=== PATIENT | female | born 1975 | race American Indian/Alaskan Native ===

== ENCOUNTER 2017-01-26 19:52 | Emergency (ER) | payer SELFPAY ==
[2017-01-26 19:56] VITALS: BP 103/66
[2017-01-26] MEDS ORDERED: Al Hydrox/Mg Hydrox/Simet LIQ* 30 ML UDC PO ONE (20:33)
[2017-01-26] MEDS ORDERED: Lidocaine 2% VISCOUS* 15 ML UDC PO ONE (20:33)
--- NOTE | 2017-01-26 20:41 | UC ---
Cardiac HPI - HPI Summary HPI Summary: PT WITH SEVERAL WEEKS OF INTERMITTENT SHARP MID STERNAL CP AND FEELING OF SOB, LIKE SHE IS CHOKING. FEELS SHE CAN NOT SWALLOW. FOOD IS GETTING STUCK. CAN NOT SWALLOW SOLIDS WITHOUT SPITTING THEM BACK UP. LIQUIDS ARE GOING DOWN OKAY. IS HANDLING SECRETIONS WELL DURING ENCOUNTER BUT REPORTS THAT SOMETIMES SHE FEELS HER SALIVA IS POOLING. PT IS VERY ANXIOUS AND TEARFUL. HAS H/O ANXIETY. WAS ON SERTRALINE AND QUETIAPINE PER HER PHYSICIAN IN [place] SINCE THE FALL 2015 BUT WAS DOING WELL SO TAPERED OFF SEVERAL MONTHS AGO. SX ARE WORSE AT NIGHT. TOOK NEXIUM YESTERDAY AND WAS ABLE TO SLEEP THROUGH THE NIGHT. HAS BEEN TO THE ER TWICE EARLIER THIS YEAR FOR SIMILAR SX. CARDIAC WORK-UP NEGATIVE. - History of Current Complaint Chief Complaint: UCChestPain Stated Complaint: RESP COMPLAINT Time Seen by Provider: 01/26/17 20:01 Hx Obtained From: Patient Onset/Duration: Gradual Onset, Lasting Weeks, Still Present Timing: Intermittent Episodes Lasting: Initial Severity: Moderate Current Severity: Moderate Pain Intensity: 7 Chest Pain Location: Mid Sternal Character: Sharp/Stabbing Aggravating: Nothing Alleviating: Nothing Associated Signs & Symptoms: Positive: Chest Pain, Anxiety, Headaches, SOB - FEELS LIKE SHE IS CHOKING, Nausea/Vomiting. Negative: Syncope, Fever, Diaphoresis, Palpitations, Cough - Allergy/Home Medications Allergies/Adverse Reactions: Allergies Allergy/AdvReac Type Severity Reaction Status Date / Time No Known Allergies Allergy Verified 01/26/17 19:56 PMH/Surg Hx/FS Hx/Imm Hx Psychological History: Anxiety - Surgical History Surgical History: None - Family History Known Family History: Positive: Other - sister had anxiety and depression in her 40s Negative: Cardiac Disease, Hypertension, Diabetes - Social History Alcohol Use: None Substance Use Type: None Smoking Status (MU): Never Smoked Tobacco - Immunization History Most Recent Influenza Vaccination: not yet this year Most Recent Tetanus Shot: unsure Most Recent Pneumonia Vaccination: none Review of Systems Constitutional: Negative ENT: Other - GLOBUS SENSATION Respiratory: Other - FEELS LIKE SHE IS CHOKING Cardiovascular: Chest Pain Gastrointestinal: Negative Psychological: Anxious All Other Systems Reviewed And Are Negative: Yes Physical Exam Triage Information Reviewed: Yes Appearance: No Pain Distress, Well-Nourished, Other: - TEARFUL Vital Signs: Initial Vital Signs Temp 98.5 F 01/26/17 19:53 Pulse 79 01/26/17 19:53 Resp 20 01/26/17 19:53 BP 103/66 01/26/17 19:53 Pulse Ox 99 01/26/17 19:53 Vital Signs Reviewed: Yes Eyes: Positive: Conjunctiva Clear ENT: Positive: Hearing grossly normal, Pharynx normal, TMs normal, Other: - IS HANDLING SECRETIONS WELL. Negative: Tonsillar swelling, Muffled/hoarse voice Neck: Positive: Supple, Nontender, No Lymphadenopathy Respiratory Exam: Normal Cardiovascular Exam: Normal Abdomen Description: Positive: Soft Musculoskeletal: Positive: No Edema Neurological: Positive: Alert Psychological: Positive: Age Appropriate Behavior Skin: Negative: rashes Diagnostics - EKG Cardiac Rate: NL - 67bpm Cardiac Rhythm: Sinus: Normal Ectopy: None ST Segment: Normal Re-Evaluation - Re-Evaluation First Eval Re-Evaluation Time: 21:30 - NO CLEAR IMPROVEMENT WITH GI COCKTAIL Change: Unchanged - Assessment/Plan Course Of Treatment: DISCUSSED TRANSFER TO ER FOR CARDIAC WORK-UP. PT DECLINES. SX SEEM MORE LIKELY TO BE RELATED TO UNTREATED DEPRESSION AND ANXIETY. PT DENIES SUICIDAL IDEATIONS. PT TO SEEK OUTPATIENT TREATMENT. WILL GO TO ER IF SX WORSEN. - Clinical Impression Provider Diagnoses: ANXIETY Discharge - Discharge Plan Condition: Stable Disposition: HOME Prescriptions: Esomeprazole(NF) [NexIUM(NF)] 40 mg PO DAILY #30 cap Patient Education Materials: Gastritis (ED), Mood Disorders (ED), Anxiety (ED) Referrals: Louie Cohn MD [Medical Doctor] - Additional Instructions: YOUR SYMPTOMS ARE LIKELY DUE TO ANXIETY AND POSSIBLY SOME CONCOMITANT GASTRITIS. TAKE THE NEXIUM DAILY AND AVOID POSSIBLE TRIGGER FOODS - GREASY, SPICY, ACIDIC ITEMS. CALL GI FOR AN APPT FOR FURTHER EVALUATION. YOU WOULD LIKELY ALSO BENEFIT FROM TREATMENT FOR DEPRESSION AND ANXIETY. KEEP YOUR COUNSELING APPT IN 2 DAYS AND CALL [facility] TO GET ESTABLISHED WITH PSYCHIATRY. CALL THE NUMBER BELOW FOR ASSISTANCE IN ESTABLISHING WITH A PCP An additional resource available to assist in finding the appropriate physician for your health care needs is the [facility] ([facility]). You may contact them by calling [phone]. [facility] Address: [address] [place] [address] GO TO THE ER WITHOUT FAIL IF YOUR SYMPTOMS WORSEN.
== END 2017-01-26 21:51 | disposition home or self-care (01) ==
LOC: UCEAST 19:52
DX: F41.9 Anxiety disorder, unspecified (principal)
CPT/HCPCS: 93005; 99212; A9270-GY; G0463

== ENCOUNTER 2017-01-26 22:27 | Emergency (ER) | payer SELFPAY ==
[2017-01-26 23:54] VITALS: BP 99/62
== END 2017-01-27 00:49 | disposition left against medical advice (07) ==
LOC: ED 22:27
DX: R06.02 Shortness of breath (principal); Z53.21 Procedure and treatment not carried out due to patient leaving prior to being seen by health care provider

== ENCOUNTER 2017-01-27 03:20 | Emergency (ER) | payer OTHER ==
[2017-01-27] MEDS ORDERED: NS 0.9% 1000 ML* 1,000 ML IV SCH (03:45)
[2017-01-27] MEDS ORDERED: Al Hydrox/Mg Hydrox/Simet LIQ* 30 ML UDC PO ONE (04:13)
[2017-01-27] MEDS ORDERED: Pantoprazole IV* 40 MG IV ONE (04:13)
[2017-01-27] MEDS ORDERED: Lidocaine 2% VISCOUS* 15 ML UDC PO ONE (04:13)
[2017-01-27 04:47] LABS: Hematocrit 40 % (35-47); Hemoglobin 12.6 g/dl (12.0-16.0); Mean Corpuscular HGB Conc 32 g/dl (31-36); Mean Corpuscular Hemoglobin 25 pg (27-31); Mean Corpuscular Volume 80 fL (80-97); Mean Platelet Volume 9 um3 (7.4-10.4); Red Blood Count 5.01 10^6/ul (4.0-5.4); Red Cell Distribution Width 15 % (10.5-15); White Blood Count 6.6 10^3/ul (3.5-10.8)
[2017-01-27 04:57] LABS: ALT 9 U/L (7-52); AST 14 U/L (13-39); Albumin 4.5 g/dL (3.2-5.2); Alkaline Phosphatase 53 U/L (34-104); Anion Gap 5 mmol/L (2-11); BUN/Creatinine Ratio 14.1 (8-20); Blood Urea Nitrogen 9 mg/dL (6-24); CO2 Carbon Dioxide 27 mmol/L (22-32); Calcium 9.3 mg/dL (8.6-10.3); Chloride 104 mmol/L (101-111); Creatine Kinase 64 U/L (10-223); EGFR African American 131.5 (>60); EGFR Non-African American 102.3 (>60); Globulin 2.9 g/dL (2-4); Glucose 93 mg/dL (70-100); Lipase 25 U/L (11.0-82.0); Magnesium 2.1 mg/dL (1.9-2.7); Potassium 3.7 mmol/L (3.5-5.0); Sodium 136 mmol/L (133-145); Total Protein 7.4 g/dL (6.4-8.9)
[2017-01-27 05:14] LABS: TSH (Thyroid Stimulating Horm) 3.26 mcIU/mL (0.34-5.60)
--- NOTE | 2017-01-27 05:56 | ED ---
charles Oreilly Timothy, scribed for Jasbir Richards MD on 01/27/17 at 0338 . HPI Chest Pain - HPI Summary HPI Summary: Lynda Romo is a 41 yo female presenting to [facility] with 7/10 chest and abd pain since 01/13/17. She presents today concerned that the pain has not resolved. She states she feels like there is something stuck in her throat and feels blocked up. She states that she can swallow her saliva with no difficulties. She notes she feels that she has to open her mouth in order to breathe easily. She was seen in urgent care last night at 1999, where she was given a GI cocktail. She states laying down makes her pain worse. She notes no issues with BM or urination. She started nexium yesterday. Her MHx includes anxiety per urgent care note. Her LNMP was 2 weeks ago. - History of Current Complaint Chief Complaint: EDChestPainROMI Time Seen by Provider: 01/27/17 04:10 Hx Obtained From: Patient Onset/Duration: Started Weeks Ago, Still Present Timing: Constant Initial Severity: Moderate Current Severity: Moderate Pain Intensity: 7 Pain Scale Used: 0-10 Numeric Chest Pain Radiates: Yes Chest Pain Radiates To:: Epigastric Aggravating Factor(s): Position - laying down Associated Signs and Symptoms: Positive: Abdominal Pain - Allergy/Home Medications Allergies/Adverse Reactions: Allergies Allergy/AdvReac Type Severity Reaction Status Date / Time No Known Allergies Allergy Verified 01/26/17 19:56 PMH/Surg Hx/FS Hx/Imm Hx Endocrine/Hematology History: Denies: Hx Blood Disorders, Hx Diabetes Cardiovascular History: Denies: Hx Hypertension Respiratory History: Denies: Hx Asthma, Hx Chronic Obstructive Pulmonary Disease (COPD) Psychiatric History: Reports: Hx Anxiety Infectious Disease History: Denies: Hx Clostridium Difficile, Hx Hepatitis, Hx of Known/Suspected MRSA, Hx Shingles, Hx Tuberculosis, Hx Known/Suspected VRE, Hx Known/Suspected VRSA, History Other Infectious Disease, Traveled Outside the [place] in Last 30 Days - Family History Known Family History: Positive: Other - sister had anxiety and depression in her 40s Negative: Cardiac Disease, Hypertension, Diabetes - Social History Alcohol Use: None Substance Use Type: Reports: None Hx Tobacco Use: No Smoking Status (MU): Never Smoked Tobacco Review of Systems Constitutional: Negative Eyes: Negative Positive: Sore Throat - foreign body sensation Positive: Chest Pain - foreign body sensation Respiratory: Negative Positive: Abdominal Pain Genitourinary: Negative Positive: no symptoms reported Musculoskeletal: Negative Skin: Negative Neurological: Negative Psychological: Normal All Other Systems Reviewed And Are Negative: Yes Physical Exam Triage Information Reviewed: Yes Vital Signs On Initial Exam: Initial Vitals Temp Pulse Resp BP Pulse Ox 97.4 F 66 18 105/67 99 01/27/17 03:24 01/27/17 03:24 01/27/17 03:24 01/27/17 03:24 01/27/17 03:24 Vital Signs Reviewed: Yes Appearance: Positive: Well-Appearing, Well-Nourished, Pain Distress - mild, worse when she swallows Skin: Positive: Warm, Skin Color Reflects Adequate Perfusion, Dry Head/Face: Positive: Normal Head/Face Inspection Eyes: Positive: EOMI, MARY ANN ENT: Positive: Normal ENT inspection Neck: Positive: Supple, Nontender Respiratory/Lung Sounds: Positive: Clear to Auscultation, Breath Sounds Present Cardiovascular: Positive: RRR Abdomen Description: Positive: Soft. Negative: Nontender - tender with palpation to sternum and epigastrum. All other abd is nontender. Bowel Sounds: Positive: Present Musculoskeletal: Positive: Normal, Strength/ROM Intact Neurological: Positive: Normal, Sensory/Motor Intact, Alert, Oriented to Person Place, Time Psychiatric: Positive: Affect/Mood Appropriate Diagnostics - Vital Signs Vital Signs Temp Pulse Resp BP Pulse Ox 01/27/17 03:24 97.4 F 66 18 105/67 99 - Laboratory Lab Results: Lab Results 01/27/17 01/27/17 01/27/17 Range/Units 04:25 04:25 04:25 WBC 6.6 (3.5-10.8) 10^3/ul RBC 5.01 (4.0-5.4) 10^6/ul Hgb 12.6 (12.0-16.0) g/dl Hct 40 (35-47) % MCV 80 (80-97) fL MCH 25 L (27-31) pg MCHC 32 (31-36) g/dl RDW 15 (10.5-15) % Plt Count 230 (150-450) 10^3/ul MPV 9 (7.4-10.4) um3 Neut % (Auto) 59.0 (38-83) % Lymph % (Auto) 31.0 (25-47) % Izard % (Auto) 7.5 (1-9) % Eos % (Auto) 2.0 (0-6) % Baso % (Auto) 0.5 (0-2) % Absolute Neuts (auto) 3.9 (1.5-7.7) 10^3/ul Absolute Lymphs (auto) 2.0 (1.0-4.8) 10^3/ul Absolute Monos (auto) 0.5 (0-0.8) 10^3/ul Absolute Eos (auto) 0.1 (0-0.6) 10^3/ul Absolute Basos (auto) 0 (0-0.2) 10^3/ul Absolute Nucleated RBC 0.01 10^3/ul Nucleated RBC % 0.1 INR (Anticoag Therapy) 0.99 (0.89-1.11) APTT 29.7 (26.0-36.3) seconds D-Dimer, Quantitative < 200 (Less Than 230) ng/mL Sodium 136 (133-145) mmol/L Potassium 3.7 (3.5-5.0) mmol/L Chloride 104 (101-111) mmol/L Carbon Dioxide 27 (22-32) mmol/L Anion Gap 5 (2-11) mmol/L BUN 9 (6-24) mg/dL Creatinine 0.64 (0.51-0.95) mg/dL Est GFR ( Amer) 131.5 (>60) Est GFR (Non-Af Amer) 102.3 (>60) BUN/Creatinine Ratio 14.1 (8-20) Glucose 93 (70-100) mg/dL Lactic Acid (0.5-2.0) mmol/L Calcium 9.3 (8.6-10.3) mg/dL Magnesium 2.1 (1.9-2.7) mg/dL Total Bilirubin 0.50 (0.2-1.0) mg/dL AST 14 (13-39) U/L ALT 9 (7-52) U/L Alkaline Phosphatase 53 (34-104) U/L Total Creatine Kinase 64 (10-223) U/L CK-MB (CK-2) 1.0 (0.6-6.3) ng/mL Troponin I 0.00 (<0.04) ng/mL C-Reactive Protein 2.70 (< 5.00) mg/L B-Natriuretic Peptide ( - 100) pg/mL Total Protein 7.4 (6.4-8.9) g/dL Albumin 4.5 (3.2-5.2) g/dL Globulin 2.9 (2-4) g/dL Albumin/Globulin Ratio 1.6 (1-3) Lipase 25 (11.0-82.0) U/L TSH 3.26 (0.34-5.60) mcIU/mL Beta HCG, Quant < 0.60 mIU/mL 01/27/17 01/27/17 Range/Units 04:25 04:25 WBC (3.5-10.8) 10^3/ul RBC (4.0-5.4) 10^6/ul Hgb (12.0-16.0) g/dl Hct (35-47) % MCV (80-97) fL MCH (27-31) pg MCHC (31-36) g/dl RDW (10.5-15) % Plt Count (150-450) 10^3/ul MPV (7.4-10.4) um3 Neut % (Auto) (38-83) % Lymph % (Auto) (25-47) % Izard % (Auto) (1-9) % Eos % (Auto) (0-6) % Baso % (Auto) (0-2) % Absolute Neuts (auto) (1.5-7.7) 10^3/ul Absolute Lymphs (auto) (1.0-4.8) 10^3/ul Absolute Monos (auto) (0-0.8) 10^3/ul Absolute Eos (auto) (0-0.6) 10^3/ul Absolute Basos (auto) (0-0.2) 10^3/ul Absolute Nucleated RBC 10^3/ul Nucleated RBC % INR (Anticoag Therapy) (0.89-1.11) APTT (26.0-36.3) seconds D-Dimer, Quantitative (Less Than 230) ng/mL Sodium (133-145) mmol/L Potassium (3.5-5.0) mmol/L Chloride (101-111) mmol/L Carbon Dioxide (22-32) mmol/L Anion Gap (2-11) mmol/L BUN (6-24) mg/dL Creatinine (0.51-0.95) mg/dL Est GFR ( Amer) (>60) Est GFR (Non-Af Amer) (>60) BUN/Creatinine Ratio (8-20) Glucose (70-100) mg/dL Lactic Acid 0.6 (0.5-2.0) mmol/L Calcium (8.6-10.3) mg/dL Magnesium (1.9-2.7) mg/dL Total Bilirubin (0.2-1.0) mg/dL AST (13-39) U/L ALT (7-52) U/L Alkaline Phosphatase (34-104) U/L Total Creatine Kinase (10-223) U/L CK-MB (CK-2) (0.6-6.3) ng/mL Troponin I (<0.04) ng/mL C-Reactive Protein (< 5.00) mg/L B-Natriuretic Peptide 12 ( - 100) pg/mL Total Protein (6.4-8.9) g/dL Albumin (3.2-5.2) g/dL Globulin (2-4) g/dL Albumin/Globulin Ratio (1-3) Lipase (11.0-82.0) U/L TSH (0.34-5.60) mcIU/mL Beta HCG, Quant mIU/mL Result Diagrams: 01/27/17 04:25 01/27/17 04:25 Lab Statement: Any lab studies that have been ordered have been reviewed, and results considered in the medical decision making process. - Radiology CXR Xray Interpretation: No Acute Changes - No acute disease Radiology Interpretation Completed By: ED Physician - EKG 0335 Cardiac Rate: NL - 62 BPM EKG Interpretation: NSR @ 62 BPM, normal ST, no ectopy Re-Evaluation - Re-Evaluation First Eval Re-Evaluation Time: 05:48 Change: Improved Comment: Reviewed lab and imaging study results with Pt. Pt notes marked improvement in her Sx. Chest Pain Course/Dx - Course Assessment/Plan: Lynda Romo is a 41 yo female presenting to [facility] with 7/10 chest and abd pain since 01/13/17. Pt medication list is reviewed this visit. In the ED course she received IV fluids, maalox plus, xylocaine 2% viscous, and protonix. Her CXR shows no acute disease. Her EKG shows NSR, normal ST, and no ectopy. After clinical examination and review of her lab work , she will be discharged home with appropriate instructions. NO CRITICAL CARE TIME. IMPROVED IN ED AFTER GI COCKTAIL. DISCUSSED RESULTS WITH PATIENT. RX OMEPRAZOLE 20MG PO BID AND CARAFATE QID. [facility] HOME STABLE. - Chest Pain Differential Diagnosis/HQI/PQRI: Other: - FBS, GERD - Diagnoses Provider Diagnoses: GERD (gastroesophageal reflux disease) Discharge - Discharge Plan Condition: Stable Disposition: HOME Prescriptions: Omeprazole CAP* [Prilosec CAP* 20 MG] 20 mg PO BID #30 cap. Sucralfate TAB* [Carafate*] 1 gm PO QID #60 tab Patient Education Materials: Gastroesophageal Reflux Disease (ED) Referrals: [facility] PHYSICIAN REFERRAL [Outside] - 2 Days Additional Instructions: Please follow up with the primary care physician provided regarding your visit to the emergency department today. Return to the emergency department with any new or recurring symptoms. The documentation as recorded by the charles moreland Timothy accurately reflects the service I personally performed and the decisions made by me, Jasbir Richards MD.
[2017-01-27 06:12] VITALS: BP 99/74
--- NOTE | 2017-01-27 08:00 | RAD ---
Indication: Shortness of breath, abdominal pain, dysphagia. Comparison: July 16, 2016 Technique: Upright AP 0355 hours Report: Clear lungs and pleural spaces. Negative for pneumothorax. The heart, pulmonary vasculature, and mediastinal contours are unremarkable. Negative for free air beneath the diaphragm. IMPRESSION: No evidence for acute intrathoracic disease.
== END 2017-01-27 06:10 | disposition home or self-care (01) ==
LOC: ED 03:20
DX: K21.9 Gastro-esophageal reflux disease without esophagitis (principal); R10.13 Epigastric pain; J02.9 Acute pharyngitis, unspecified; R07.9 Chest pain, unspecified
CPT/HCPCS: 36415; 71010; 80053; 82550; 82553; 83605; 83690; 83735; 83880; 84443; 84484; 84702; 85025; 85379; 85610; 85730; 86140; 93005; 96365; 99284; A9270-GY

== ENCOUNTER 2018-02-21 20:54 | Emergency (ER) | payer OTHER ==
[2018-02-21 21:03] VITALS: BP 102/63
[2018-02-21] MEDS ORDERED: LORazepam TAB(*) 1 MG PO ONE (21:26)
--- NOTE | 2018-02-21 21:26 | UC ---
Psychiatric Complaint HPI - HPI Summary HPI Summary: This is merly Weiner documenting for attending Didier Blount MD. This patient is a 42 year old F presenting to [facility] with a chief complaint of anxiety that began 5 days ago. The patient rates the pain 0/10 in severity. Symptoms aggravated by nothing. Symptoms alleviated by nothing. Patient reports not sleeping well, decreased appetite, and sensation of ants on my arms. She reports she has a history of panic attacks, with similar symptoms, that she has been treating in her home country of [place]. Patient reports she was seen in [place] one week ago and was worked up for a stroke, with all results being negative (negative for acute coronary syndrome as well). She reports that she then went to [facility] but was unable to get an appointment within the next month. - History Of Current Complaint Chief Complaint: UCGeneralIllness Stated Complaint: BODY SHAKES Time Seen by Provider: 02/21/18 21:14 Hx Obtained From: Patient Hx Last Menstrual Period: 3 wks ago ?: No Onset/Duration: Sudden Onset, Lasting Days, Still Present Timing: Constant Severity Initially: Mild Severity Currently: Mild Character: Anxious Aggravating Factor(s): Nothing Alleviating Factor(s): Nothing Related History: Positive For: Prior Psychiatric Issues - Allergies/Home Medications Allergies/Adverse Reactions: Allergies Allergy/AdvReac Type Severity Reaction Status Date / Time No Known Allergies Allergy Verified 02/21/18 21:03 PMH/Surg Hx/FS Hx/Imm Hx Previously Healthy: No Endocrine History: Other Other Endocrine History: Negative diabetes Psychological History: Anxiety, Other Other Psychological History: Negative depression - Surgical History Surgical History: None - Family History Known Family History: Positive: Other - sister had anxiety and depression in her 40s Negative: Cardiac Disease, Hypertension, Diabetes - Social History Occupation: Unemployed Lives: With Family Alcohol Use: None Substance Use Type: None Smoking Status (MU): Never Smoked Tobacco - Immunization History Most Recent Influenza Vaccination: not yet this year Most Recent Tetanus Shot: unsure Most Recent Pneumonia Vaccination: none Review of Systems Gastrointestinal: Other - Positive decreased appetite Psychological: Anxious, Other - Positive not sleeping well and sensation of "ants on arms" All Other Systems Reviewed And Are Negative: Yes Physical Exam - Summary Physical Exam Summary: VITAL SIGNS: Reviewed. GENERAL: Patient is a well-developed and nourished female who is lying comfortable in the stretcher. Patient is not in any acute respiratory distress. HEAD AND FACE: Normocephalic EYES: PERRLA, EOMI x 2. EARS: Hearing grossly intact. MOUTH: Oropharynx within normal limits. NECK: Supple, trachea is midline, no adenopathy, no JVD, no carotid bruit. CHEST: Symmetric, no tenderness at palpation LUNGS: Clear to auscultation bilaterally. No wheezing or crackles. CVS: Regular rate and rhythm, S1 and S2 present, no murmurs or gallops appreciated. ABDOMEN: Soft, non-tender. Bowel sounds are normal. No abdominal abnormal pulsations. EXTREMITIES: Full ROM in all major joints, no edema, no cyanosis or clubbing. NEURO: Alert and oriented x 3. No acute neurological deficits. Speech is normal and follows commands. SKIN: Dry and warm PSYCH: Nervous, crying, denies SI and HI Triage Information Reviewed: Yes Vital Signs: Initial Vital Signs Temp 99.2 F 02/21/18 20:59 Pulse 84 02/21/18 20:59 Resp 18 02/21/18 20:59 BP 102/63 02/21/18 20:59 Pulse Ox 97 02/21/18 20:59 Vital Signs Reviewed: Yes Psych Complaint Course/Dx - Course Course Of Treatment: This patient is a 43-year-old female who presents to the urgent care with chief complaint of having panic attacks. The patient reports that in the last 2 weeks the panic attacks worsened and actually she has been seen in [facility] and [facility] where she rules out stroke and acute coronary syndrome. She reports that she has history of panic attacks 3 years ago for which she was treated and improved when he feels the same. Patient has been free from panic attacks from 2 years. Patient was given a prescription for Ativan and Atarax. Patient has an appointment with [facility]. - Differential Dx/Diagnosis Provider Diagnoses: Panic Atack Discharge - Sign-Out/Discharge Documenting (check all that apply): Patient Departure - Discharge Plan Condition: Stable Disposition: HOME Prescriptions: hydrOXYzine HCL TAB* [Atarax 25 MG TAB*] 25 mg PO TID PRN #30 tab PRN Reason: Anxiety LORazepam [Ativan] 1 mg PO DAILY #10 tablet MDD 1 Patient Education Materials: Panic Disorder (ED) Referrals: [facility] [place] [place] PHYSICIAN REFERRAL [Outside] No Primary Care Phys,NOPCP [Primary Care Provider] - Additional Instructions: Take Acetaminophen or ibuprofen for pain or fever Increase your fluid intake Return to the or go to the emergency department if symptoms worsen Follow-up with primary care physician in next 2-3 days - Billing Disposition and Condition Condition: STABLE Disposition: Home
== END 2018-02-21 21:55 | disposition home or self-care (01) ==
LOC: UCEAST 20:54
DX: F41.0 Panic disorder [episodic paroxysmal anxiety] (principal)
CPT/HCPCS: 99212; A9270-GY; G0463

== ENCOUNTER 2019-11-03 01:57 | Emergency (ER) | payer SELFPAY ==
[2019-11-03] MEDS ORDERED: LORazepam TAB(*) 1 MG PO ONE (02:09)
--- NOTE | 2019-11-03 02:15 | ED ---
Influenza-Like Illness - HPI Summary HPI Summary: 43 year old female presents to the ED with a chief complaint of chest tightness starting tonight. Patient tested negative for COVID-19 on 10/31/19, but has been extremely anxious over the past several days. Patient went on a walk tonight and began to feel tight in her chest. She reports a subjective fever. History of anxiety. Patient does not drink alcohol, smoke tobacco, or do recreational drugs. - History of Current Complaint Time Seen by Provider: 11/03/19 01:58 Hx Obtained From: Patient Onset/Duration: Sudden Onset, Lasting Hours, Worse Since - earlier this evening Severity: Mild Associated Signs & Symptoms: Fever - subjective - Allergy/Home Medications Allergies/Adverse Reactions: Allergies Allergy/AdvReac Type Severity Reaction Status Date / Time No Known Allergies Allergy Verified 11/03/19 02:27 Home Medications: Home Medications LORazepam TAB(*) [Ativan 0.5 MG TAB (*)] 0.5 mg PO Q8H PRN #10 tab MDD 2 [Rx] PMH/Surg Hx/FS Hx/Imm Hx Endocrine/Hematology History: Denies: Hx Blood Disorders, Hx Diabetes Cardiovascular History: Denies: Hx Hypertension Respiratory History: Denies: Hx Asthma, Hx Chronic Obstructive Pulmonary Disease (COPD) Psychiatric History: Reports: Hx Anxiety - Cancer History Hx Chemotherapy: No Hx Radiation Therapy: No Infectious Disease History: Denies: Hx Clostridium Difficile, Hx Hepatitis, Hx of Known/Suspected MRSA, Hx Shingles, Hx Tuberculosis, Hx Known/Suspected VRE, Hx Known/Suspected VRSA, History Other Infectious Disease - Family History Known Family History: Positive: Other - sister had anxiety and depression in her 40s Negative: Cardiac Disease, Hypertension, Diabetes - Social History Alcohol Use: None Substance Use Type: Reports: None Hx Tobacco Use: No Smoking Status (MU): Never Smoked Tobacco Review of Systems Positive: Fever - subjective Positive: Chest Pain - tightness All Other Systems Reviewed And Are Negative: Yes Physical Exam - Summary Physical Exam Summary: Appearance: Well-nourished, lying in bed comfortably. Somewhat tearful and anxious, otherwise well-appearing. Skin: Warm, dry, no obvious rash Eyes: sclera anicteric, no conjunctival pallor HENT: mucous membranes moist, pharynx appears normal Neck: Supple, nontender Respiratory: Clear to auscultation, no signs of respiratory distress Cardiovascular: Normal S1, S2. No murmurs. Normal distal pulses in tibial and radial bilaterally. Abdomen: Soft, nontender, normal active bowel sounds present Musculoskeletal: Normal, Strength/ROM Intact Neurological: A&Ox3, awake and alert, mentation is normal, speech is fluent and appropriate Psychiatric: affect is normal, does not appear anxious or depressed Triage Information Reviewed: Yes Vital Signs Reviewed: Yes Procedures - Sedation Patient Received Moderate/Deep Sedation with Procedure: No Diagnostics - Laboratory Result Diagrams: 11/03/19 02:25 11/03/19 02:25 Lab Statement: Any lab studies that have been ordered have been reviewed, and results considered in the medical decision making process. - EKG 0205 Cardiac Rate: NL - 92 bpm EKG Rhythm: Sinus Rhythm ST Segment: Normal Ectopy: None Summary of EKG Findings: NSR at 92 BPM, P waves, QRS complex, and T waves are within normal limits, T waves and intervals are normal, no ischemic changes. This is a normal EKG. Dr. Perez reviewed and interpreted this EKG. Flu Symptom Course/Dx - Course Course Of Treatment: 43 year old female presents to the ED with a chief complaint of chest tightness starting tonight. Patient tested negative for COVID -19 on 10/31/19, but has been extremely anxious over the past several days. Patient went on a walk tonight and began to feel tight in her chest. She reports a subjective fever. History of anxiety. Patient does not drink alcohol, smoke tobacco, or do recreational drugs. NSR at 92 BPM, P waves, QRS complex, and T waves are within normal limits, T waves and intervals are normal, no ischemic changes. This is a normal EKG. Diagnosis is anxiety. Patient will be discharged home with reference to [facility] if needed. Patient understands and agrees with this plan. - Diagnoses Provider Diagnoses: Anxiety Discharge ED - Sign-Out/Discharge Documenting (check all that apply): Patient Departure - discharge home - Discharge Plan Condition: Stable Disposition: HOME Prescriptions: LORazepam TAB(*) [Ativan 0.5 MG TAB (*)] 0.5 mg PO Q8H PRN #10 tab MDD 2 PRN Reason: Anxiety Patient Education Materials: Anxiety (ED) Referrals: [facility] [Outside] - If Needed [facility] [Outside] - Billing Disposition and Condition Condition: STABLE Disposition: Home - Attestation Statements Document Initiated by Zaidaibe: Yes Documenting Scribe: Grzegorz Victoria Provider For Whom Destiney is Documenting (Include Credential): Dr. Julio Perez Scribdangelo Attestation: IGrzegorz, scribed for Dr. Julio Perez on 11/06/19 at 2321. Scribe Documentation Reviewed: Yes Provider Attestation: The documentation as recorded by the scribe, Grzegorz Victoria accurately reflects the service I personally performed and the decisions made by me, Dr. Julio Perez Status of Scribe Document: Viewed
[2019-11-03 02:35] LABS: ABS Eosinophils 0.2 10^3/ul (0-0.6); ABS Lymphocytes 1.7 10^3/ul (1.0-4.8); ABS Monocytes 0.5 10^3/ul (0-0.8); ABS Neutrophils 5.6 10^3/ul (1.5-7.7); Eosinophil % 2.4 %; Hematocrit 36 % (35-47); Hemoglobin 12.1 g/dL (12.0-16.0); Lymphocyte % 21.5 %; Mean Corpuscular HGB Conc 34 g/dL (31-36); Mean Corpuscular Hemoglobin 28 pg (27-31); Mean Corpuscular Volume 82 fL (80-97); Platelet Count 253 10^3/uL (150-450); Red Blood Count 4.39 10^6 /uL (3.70-4.87); Red Cell Distribution Width 15 % (10-15)
[2019-11-03 02:50] LABS: Albumin 4.1 g/dL (3.2-5.2); Albumin/Globulin Ratio 1.5 (1-3); BUN/Creatinine Ratio 17.9 (8-20); Calcium 8.6 mg/dL (8.6-10.3); EGFR African American 116.2 (>60); EGFR Non-African American 96.1 (>60); Globulin 2.7 g/dL (2-4); Potassium 3.4 mmol/L (3.5-5.0); Total Bilirubin 0.3 mg/dL (0.2-1.0); Total Protein 6.8 g/dL (6.4-8.9)
[2019-11-03 02:53] LABS: Troponin I 0.01 ng/mL (<0.03)
--- OUTSIDE RECORDS SUMMARY | 2019-11-03 03:37 | XMS REPORT ---
:1975 Author Organization [facility] Address [address] [place] [address] Care Team Providers Name Role Phone Carson Peralta Unavailable Unavailable PROBLEMS Type Condition ICD9-CM [id number] Onset Condition SNOMED Code Code Code Dates Status Problem Depression with F41.8 Active 32558394 anxiety Problem Anxiety F41.1 Active 20779449 Problem Gastroesophageal K21.9 Active 072922346 reflux disease without esophagitis ALLERGIES No Information ENCOUNTERS Encounter Location Date Diagnosis [facility] [address] Nov, [place] [address] [facility] [address] Sod, Oct, [place] [address] syndrome B34.9 [facility] [address] Oct, [place] [address] Oct, [place] [address] Oct, Abdominal pain R10.9 [place] [address] Oct, [place] [address] [facility] [address] May, [place] [address] [facility] [address] May, [place] [address] F41.8 ; Nasal congestion R09.81 ; Gastroesophageal reflux disease without esophagitis K21.9 and Screening for HIV (human immunodeficiency virus) Z11.[address] May, Depression with anxiety [place] F41.8 [address] [facility] [address] Feb, [place] [address] [place] [address] Feb, [place] [address] F41.8 and Epigastric pain R10.13 [place] [address] Feb, [place] [address] F41.8 [place] [address] Feb, [place] [address] [address] Feb, [place] [address] December, [place] [address] Nov, [place] [address] Facilitated Enrollment UNKNOWN Nov, - [place] [address] Nov, Right [place] [address] R10.11 ; Gastroesophageal reflux disease without esophagitis K21.9 and Right anterior shoulder pain M25.511 [place] [address] Jun, [place] [address] [place] [address] May, [place] [address] [place] [address] Jan, [place] [address] disorder F41.1 and Gastroesophageal reflux disease with esophagitis K21.0 [place] [address] Jan, [place] [address] [place] [address] Jan, [place] [address] [place] [address] December, [place] [address] IMMUNIZATIONS No Known Immunizations SOCIAL HISTORY Never Assessed REASON FOR REFERRAL FUNCTIONAL STATUS PLAN OF CARE VITAL SIGNS MEDICATIONS Medication Instructions Dosage Frequency Start End Duration Status Date Date HydrOXYzine HCl Orally every 6 1 tablet as 6h Oct, Active 25 MG hrs needed 2019 Colace 100 MG Orally BID 1 capsule 12h 16 Oct, Nov, 30 day(s) Active 2019 2019 Senna 8.6 MG Orally Once a 1-2 tablets 24h 16 Oct, Nov, 30 day(s) Active day at bedtime 2019 2019 as needed PROCEDURES No Known procedures RESULTS No Results REASON FOR VISIT Possible anxiety, [email or web address] Meeting ID: [id number], Verbal Consent obtained for zoom video/audio visit, name and confirmed Insurance Providers [facility] Health Member Patient Patient Patient Patient Patient Subscriber Subscriber Subscriber Group Insurance Plan Plan Plan Plan ID Relationship Address Phone Name Date of ID Name Date of No Type Insurance Insurance Insurance Coverage to Subscriber Address Phone Name Dates Case [phone] Case self Lynda [id number] Management Javier Jordan Management [address] MEDICAL (GENERAL) HISTORY Type Description Date Medical History history of small kidney stones
--- OUTSIDE RECORDS SUMMARY | 2019-11-03 03:37 | XMS REPORT ---
:1975 Author Organization [facility] Address [address] [place] [address] Care Team Providers Name Role Phone Betty Camacho Unavailable Unavailable PROBLEMS Type Condition ICD9-CM [id number] Onset Condition SNOMED Code Code Code Dates Status Problem Gastroesophageal K21.9 Active 241692229 reflux disease without esophagitis Problem Depression with F41.8 Active 47015734 anxiety ALLERGIES No Known Allergies ENCOUNTERS Encounter Location Date Diagnosis [address] Nov, [place] [address] Oct, [place] [address] Oct, Abdominal pain R10.9 [place] [address] Oct, [place] [address] May, [place] [address] [place] [address] May, [place] [address] F41.8 ; Nasal congestion R09.81 ; Gastroesophageal reflux disease without esophagitis K21.9 and Screening for HIV (human immunodeficiency virus) Z11.[address] May, Depression with anxiety [place] F41.8 [address] [place] [address] Feb, [place] [address] [place] [address] Feb, [place] [address] F41.8 and Epigastric pain R10.13 [place] [address] Feb, [place] [address] F41.8 [facility] [address] Feb, [place] [address] F41.8 [facility] [address] [facility] Feb, [place] [address] [facility] [address] [facility] December, [place] [address] [facility] [address] [facility] Nov, [place] [address] Facilitated Enrollment UNKNOWN Nov, - [place] [facility] [address] Nov, [place] [address] R10.11 ; Gastroesophageal reflux disease without esophagitis K21.9 and Right anterior shoulder pain M25.511 [facility] [address] Jun, [place] [address] [facility] [address] May, [place] [address] [facility] [address] Jan, [place] [address] disorder F41.1 and Gastroesophageal reflux disease with esophagitis K21.0 [facility] [address] Jan, [place] [address] [facility] [address] Jan, [place] [address] [facility] [address] December, [place] [address] IMMUNIZATIONS No Known Immunizations SOCIAL HISTORY Never Assessed REASON FOR REFERRAL FUNCTIONAL STATUS PLAN OF CARE Activity Details Follow Up per last OVE due 08/2018, will offer to pt Reason: VITAL SIGNS Temperature 96.7 degrees Fahrenheit 2019-10-23 Heart Rate 18 2019-10-23 Weight 149.7 2019-10-23 Height 62.8 in 2019-10-23 BMI 26.68 kg/m2 2019-10-23 Oximetry 98 % 2019-10-23 Blood pressure systolic 115 mm Hg 2019-10-23 Blood pressure diastolic 77 mm Hg 2019-10-23 MEDICATIONS Medication Instructions Dosage Frequency Start End Duration Status Date Date Colace 100 MG Orally BID 1 capsule 12h Oct, Nov, 30 day(s) Active 2019 2019 Senna 8.6 MG Orally Once a 1-2 24h Oct, Nov, 30 day(s) Active day tablets at 2019 2019 bedtime as needed HydrOXYzine HCl Orally every 8 1 tablet 8h Jan, day(s) Not-Takin 25 MG hrs as needed 2016 g Protonix 20 MG Orally Once a 1 tablet 24h Nov, day(s) Not-Takin day 2017 g Sucralfate 1 GM Orally 4 times a 1 tab 6h Not-Takin day g Cymbalta 20 mg Orally Once a 1 capsule 24h 27 Feb, day(s) Not-Takin day 2017 g Lorazepam 1 MG Oral prn take 1 Not-Takin tablet by g mouth once daily maximum daily dose of 1 Omeprazole 20 Orally Once a 1 capsule 24h Jan, day(s) Not-Takin MG day 2016 g Omeprazole 20 orally twice a one tablet 12h Not-Takin mg day g PROCEDURES Procedure Date Ordered Result Body Site Urine test October 23, 2019 Urinalysis nonauto wo scope October 23, 2019 BODY MASS INDEX DOCD October 23, 2019 SMOKING + 2ND HAND ASSESSED October 23, 2019 Oxygen saturation results documented and reviewed October 23, 2019 BLOOD PRESSURE, MEASURED October 23, 2019 RESULTS Name Result Date Reference Range - Test, Urine 2019-10-23 Test, Urine Negative Now Desired Not Desired Sooner Desired Later Desired Unknown -Urine-Dip 2019-10-23 Blood neg Urobilinogen neg Bilirubin neg Protein neg Nitrite neg Ketones neg Glucose neg pH 7 Specific [place] 1.050 Leukocytes neg REASON FOR VISIT Stomach Pain Insurance Providers [facility] Health Health Member Patient Patient Patient Patient Patient Subscriber Subscriber Subscriber Group Insurance Plan Plan Plan Plan ID Relationship Address Phone Name Date of ID Name Date of No Type Insurance Insurance Insurance Coverage to Subscriber Address Phone Name Dates Case [phone] Case self Lynda [id number] Management Javier Jordan Management [facility] [address] [facility] MEDICAL (GENERAL) HISTORY Type Description Date Medical History history of small kidney stones
--- OUTSIDE RECORDS SUMMARY | 2019-11-03 03:37 | XMS REPORT ---
:1975 Author Organization [facility] Address [address] [place] [address] Care Team Providers Name Role Phone Kayden Tena Unavailable Unavailable PROBLEMS Type Condition ICD9-CM [id number] Onset Condition SNOMED Code Code Code Dates Status Problem Gastroesophageal K21.9 Active 180270014 reflux disease without esophagitis Problem Depression with F41.8 Active 89398664 anxiety ALLERGIES No Information ENCOUNTERS Encounter Location Date Diagnosis [address] Nov, [place] [address] Oct, [place] [address] Oct, Abdominal pain R10.9 [place] [address] Oct, [place] [address] May, [place] [address] [place] [address] May, [place] [address] F41.8 ; Nasal congestion R09.81 ; Gastroesophageal reflux disease without esophagitis K21.9 and Screening for HIV (human immunodeficiency virus) Z11.[address] May, Depression with anxiety [place] F41.8 [address] [place] [address] Feb, [place] [address] [place] [address] Feb, [place] [address] F41.8 and Epigastric pain R10.13 [place] [address] Feb, [place] [address] F41.8 [facility] [address] Feb, [place] [address] F41.8 [facility] [place] [address] Feb, [place] [address] [facility] [address] [facility] December, [place] [address] [facility] [address] [facility] Nov, [place] [address] Facilitated Enrollment UNKNOWN Nov, - [place] [address] Nov, [place] [address] R10.11 ; Gastroesophageal reflux disease without esophagitis K21.9 and Right anterior shoulder pain M25.511 [place] [address] Jun, [place] [address] [place] [address] May, [place] [address] [place] [address] Jan, [place] [address] disorder F41.1 and Gastroesophageal reflux disease with esophagitis K21.0 [place] [address] Jan, [place] [address] [place] [address] Jan, [place] [address] [place] [address] December, [place] [address] IMMUNIZATIONS No Known Immunizations SOCIAL HISTORY Never Assessed REASON FOR REFERRAL FUNCTIONAL STATUS PLAN OF CARE VITAL SIGNS MEDICATIONS Unknown Medications PROCEDURES No Known procedures RESULTS No Results REASON FOR VISIT Acute Triage Insurance Providers [facility] Health Member Patient Patient Patient Patient Patient Subscriber Subscriber Subscriber Group Insurance Plan Plan Plan Plan ID Relationship Address Phone Name Date of ID Name Date of No Type Insurance Insurance Insurance Coverage to Subscriber Address Phone Name Dates Case [phone] Case self Lynda [id number] Management [place] [address] MEDICAL (GENERAL) HISTORY Type Description Date Medical History history of small kidney stones
[2019-11-03 05:15] VITALS: BP 102/61
== END 2019-11-03 05:15 | disposition home or self-care (01) ==
LOC: ED 01:57
DX: F41.9 Anxiety disorder, unspecified (principal); R07.9 Chest pain, unspecified
CPT/HCPCS: 36415; 80053; 83605; 84484; 85025; 93005; 99283; A9270-GY

== ENCOUNTER 2022-02-17 23:26 | Observation (INO) ==
[2022-02-18] MEDS ORDERED: NS 0.9% 1000 ml BAG 1,000 ML IV ONE (00:09)
[2022-02-18] MEDS ORDERED: Iohexol 300 (CONTRAST) 10 ML SDV IV ONE (00:14)
[2022-02-18 00:26] LABS: ABS Eosinophils 0.3 10^3/ul (0-0.6); ABS Lymphocytes 2.3 10^3/ul (1.0-4.8); ABS Monocytes 0.6 10^3/ul (0-0.8); ABS Neutrophils 4.8 10^3/ul (1.5-7.7); Eosinophil % 3.4 %; Hematocrit 39 % (35-47); Hemoglobin 12.5 g/dL (12.0-16.0); Lymphocyte % 28.4 %; Mean Corpuscular HGB Conc 32 g/dL (31-36); Mean Corpuscular Hemoglobin 26 pg (27-31); Mean Corpuscular Volume 82 fL (80-97); Nucleated Red Blood Cells % 0.1; Platelet Count 275 10^3/uL (150-450); Red Blood Count 4.76 10^6 /uL (3.70-4.87); Red Cell Distribution Width 15 % (10-15)
[2022-02-18 00:38] LABS: Activated Partial Thrombo Time 36.1 seconds (26.0-38.0); INR 1.06 (0.86-1.15)
[2022-02-18 00:50] LABS: High Sens Troponin Baseline 4 pg/mL (<15)
[2022-02-18 00:52] LABS: ALT 10 U/L (7-52); AST 15 U/L (13-39); Albumin 4.4 g/dL (3.2-5.2); Albumin/Globulin Ratio 1.7 (1-3); Alkaline Phosphatase 59 U/L (35-149); Anion Gap 7 mmol/L (2-11); Blood Urea Nitrogen 14 mg/dL (6-24); CO2 Carbon Dioxide 26 mmol/L (22-32); Calcium 8.9 mg/dL (8.6-10.3); Chloride 105 mmol/L (101-111); Cholesterol 223 mg/dL; Globulin 2.6 g/dL (2-4); Glucose 112 mg/dL (70-100); HDL Cholesterol 65.9 mg/dL; LDL Cholesterol 130 mg/dL; Potassium 3.5 mmol/L (3.5-5.0); Sodium 138 mmol/L (135-145); Triglycerides 135 mg/dL; eGFR CKD-EPI 102.6 (>60)
[2022-02-18 02:23] LABS: High Sensitivity Troponin 1 Hr < 3 pg/mL (<15)
[2022-02-18] MEDS ORDERED: Potassium Chlor 20 meq TAB.ER PO ONE (03:23)
[2022-02-18 04:10] LABS: Magnesium 2.3 mg/dL (1.9-2.7)
[2022-02-18] MEDS: Enoxaparin 40 MG/0.4 ML SYR SUBCUT SCH (06:14)
[2022-02-18 07:39] LABS: Urine Appearance Clear; Urine Bilirubin Negative (Negative); Urine Blood 1+ (Negative); Urine Color Straw; Urine Glucose Negative (Negative); Urine Ketones Negative (Negative); Urine Nitrite Negative (Negative); Urine Protein Negative (Negative); Urine Specific Gravity 1.021 (1.002-1.030); Urine Urobilinogen Negative (Negative)
[2022-02-18 07:48] LABS: Urine Bacteria 1+ (Absent); Urine Red Blood Cell 1+(3-5/hpf) (Absent); Urine Squamous Epithelial Cell Present (Absent); Urine White Blood Cell Trace(0-5/hpf) (Absent)
[2022-02-18] MEDS ORDERED: NS 0.9% 500 ml BAG 500 ML IV ONE (11:48)
[2022-02-18 12:15] LABS: HCG Pregnancy < 0.60 mIU/mL
[2022-02-18] MEDS ORDERED: Lorazepam PYXIS KEY PRN (18:38)
[2022-02-18] MEDS ORDERED: LORazepam 2 mg VIAL 1 ml IV PUSH ONE (19:00)
[2022-02-19] MEDS ORDERED: NS 0.9% 500 ML @ Wide Open(Bolus) 500ml IV ONE (04:00)
[2022-02-19] MEDS ORDERED: NS 0.9% 1,000 ML IV ONE (04:30)
[2022-02-19] MEDS: Enoxaparin 40 MG/0.4 ML SYR SUBCUT SCH (05:41)
[2022-02-19 06:08] LABS: ABS Eosinophils 0.3 10^3/ul (0-0.6); ABS Lymphocytes 1.7 10^3/ul (1.0-4.8); ABS Monocytes 0.5 10^3/ul (0-0.8); ABS Neutrophils 4.2 10^3/ul (1.5-7.7); Eosinophil % 3.8 %; Hematocrit 35 % (35-47); Hemoglobin 11.2 g/dL (12.0-16.0); Lymphocyte % 25.5 %; Mean Corpuscular HGB Conc 32 g/dL (31-36); Mean Corpuscular Hemoglobin 26 pg (27-31); Mean Corpuscular Volume 82 fL (80-97); Mean Platelet Volume 8.2 fL (7.4-10.4); Nucleated Red Blood Cells % 0.1; Platelet Count 235 10^3/uL (150-450); Red Blood Count 4.28 10^6 /uL (3.70-4.87); Red Cell Distribution Width 15 % (10-15); White Blood Count 6.7 10^3/uL (3.5-10.8)
[2022-02-19 06:22] LABS: Calcium 7.9 mg/dL (8.6-10.3); Magnesium 1.9 mg/dL (1.9-2.7); Potassium 3.8 mmol/L (3.5-5.0)
[2022-02-19 15:21] VITALS: BP 97/60
== END 2022-02-19 16:37 | disposition home or self-care (01) ==
LOC: ED 23:26 → EDHOLD 23:26 → SUATTDRO 02-18 02:35 → EDHOLD 02-18 07:53 → MEDTELE 02-18 08:52
PROVIDERS: ADMIT Internal Medicine; ATTEND Internal Medicine